=== PATIENT | female | born 1930 | race Caucasian/White ===

== ENCOUNTER 2018-01-09 14:47 | Inpatient (IN) | payer OTHER, MEDICAID ==
[~2018-01-09] VITALS: Ht 157.5 cm; Wt 59.0 kg
[2018-01-09] VITALS (7 sets, daily range): BP systolic 89–109
--- NOTE | 2018-01-09 14:50 | NUR ---
Placed in room 01 . Placed on site monitor, blood pressure machine and pulse oximeter. To gown for exam. Side rails up.
--- NOTE | 2018-01-09 14:52 | NUR ---
Pt presented to ED via BLS with generalized weakness. Pts family stated that she has been weak and its been increasing over the past week. Pt is very lethargic, and will respond to tactile stimuli. Pt family stated that starting yesterday she stopped eating and getting up to use the restroom as well as stopped taking her medication. Pt is connected to monitor. Will continue to monitor.
--- NOTE | 2018-01-09 14:55 | NUR ---
ER Dr. Alaniz at bedside examining patient.
[2018-01-09] MEDS ORDERED: NALOXONE HCL 2 MG/2 ML SYR IVP ONE (15:00)
--- NOTE | 2018-01-09 15:18 | NUR ---
Phleb at bedside for blood draw
--- NOTE | 2018-01-09 15:20 | NUR ---
Patient off unit transported to radiology via gurney , accompanied by
[2018-01-09] MEDS ORDERED: WARF3TAB2 PO (15:25)
[2018-01-09] MEDS ORDERED: CHOL500037 PO (15:25)
[2018-01-09] MEDS ORDERED: HYDR-1115 PO (15:25)
[2018-01-09] MEDS ORDERED: LISI30TA36 PO (15:25)
[2018-01-09] MEDS ORDERED: AMI200 PO (15:25)
[2018-01-09] MEDS ORDERED: WARF4TAB2 PO (15:25)
[2018-01-09] MEDS ORDERED: HYDR25TA4 PO (15:25)
--- NOTE | 2018-01-09 15:26 | NUR ---
Medication reconciliation completed with information provided by Daughter. All RX bottles returned and asked to be taken home if pt is admitted. Verbalized understanding. Any prior medication reconciliation on file was reviewed and corrected.
--- NOTE | 2018-01-09 15:35 | NUR ---
Patient returned from radiology via [facility] , accompanied by
[2018-01-09 15:46] LABS: HEMATOCRIT 35.2 % (36-48); HEMOGLOBIN 12.1 g/dL (12.0-16.0); MEAN CORPUSCULAR HEMOGLOBIN 33 pg (27-31); MEAN CORPUSCULAR HGB CONC 34 % (32-36); MEAN CORPUSCULAR VOLUME 96 fL (79.0-98.0); PLATELET COUNT (AUTO) 100 K/uL (130-430); RED BLOOD CELL COUNT(AUTO) 3.66 MIL/uL (4.2-6.2); RED CELL DISTRIBUTION WIDTH 14.9 % (9.0-15.0); WHITE BLOOD COUNT (AUTO) 6.6 K/uL (4.8-10.8)
[2018-01-09 15:55] LABS: BAND % (MANUAL) 11 % (0-6); EOSINOPHILS % (MANUAL) 0 % (0-7); LYMPHOCYTES % (MANUAL) 3 % (20-46); MONOCYTES % (MANUAL) 0 % (0-11)
[2018-01-09 16:03] LABS: ANION GAP 13 (5-15); CALCIUM 9.2 mg/dL (8.4-11.0); CHLORIDE 103 mmol/L (98-107); CREATININE 1.68 mg/dL (0.55-1.30); GLUCOSE 79 mg/dL (70-99); POTASSIUM 3.2 mmol/L (3.5-5.1); SODIUM SERUM 137 mmol/L (136-145); UREA NITROGEN, BLOOD 34 mg/dL (8-21)
[2018-01-09 16:04] LABS: INR 3.4 (0.8-1.2)
[2018-01-09 16:05] LABS: PROTHROMBIN TIME 35.2 SECS (9.5-12.5)
--- NOTE | 2018-01-09 16:06 | NUR ---
critical lab results: PT = 35.2 and INR = 3.4 ; Notified Dr. Alaniz, physician to see patient.
[2018-01-09 16:08] LABS: ALANINE AMINOTRANSFERASE 241 U/L (12-78); ALBUMIN 3.2 g/dL (3.4-4.8); ASPARTATE AMINOTRANSFERASE 564 U/L (10-37); TOTAL BILIRUBIN 2.5 mg/dL (0.0-1.0)
[2018-01-09 16:09] LABS: ALCOHOL, BLOOD < 3 mg/dL (<10)
[2018-01-09] MEDS ORDERED: NACL 0.9% 1,000 ML IV ONE ×2 (16:15→17:00)
[2018-01-09 16:49] LABS: BASOPHILS % (MANUAL) 0 % (0-2)
[2018-01-09 17:27] LABS: BILIRUBIN,URINE 1+ (NEGATIVE); BLOOD, URINE NEGATIVE (NEGATIVE); CLARITY/URINE CLEAR (CLEAR); COLOR,URINE YELLOW (YELLOW); GLUCOSE,URINE NEGATIVE (NEGATIVE); KETONES,URINE TRACE (NEGATIVE); LEUKOCYTE ESTERASE ,URINE TRACE (NEGATIVE); NITRITE, URINE NEGATIVE (NEGATIVE); PH,URINE 5.5 (5.0-8.0); PROTEIN URINE TRACE (NEGATIVE)
[2018-01-09 17:29] LABS: RBC,URINE 0-3 /HPF (0-3); WBC,URINE 0-3 /HPF (0-3)
[2018-01-09 17:30] LABS: BACTERIA,URINE MODERATE /HPF (None Seen); BARBITURATE, URINE NEGATIVE (NEG <=200); BENZODIAZEPINE, URINE NEGATIVE (NEG <=150); CANNABINOID, URINE NEGATIVE (NEG <=50); COCAINE, URINE NEGATIVE (NEG <=150); METHAMPHETAMINES SCREEN,URINE NEGATIVE (NEG <=500); OPIATE, URINE NEGATIVE (NEG <=100); PHENCYCLIDINE SCREEN,URINE NEGATIVE (NEG <=25); UR TRICYCLIC ANTIDEPRESSANTS NEGATIVE (NEG <=300); URINE AMPHETAMINE NEGATIVE (NEG <=500); URINE METHADONE NEGATIVE (NEG <=200); URINE OXYCODONE SCREEN NEGATIVE (NEG <=100); URINE PROPOXYPHENE SCREEN NEGATIVE (NEG <=300)
[2018-01-09] MEDS: NOREPINEPHRINE BITARTRATE 4 MG in NS 246 ML IV PRN ×2 (17:49→23:49)
--- NOTE | 2018-01-09 17:49 | NUR ---
Levophed Pt started on Levophed per MD. Pt connected to cardiac/vascular sonographer, will continue to monitor pt's blood pressure.
[2018-01-09] MEDS ORDERED: COMMUNICATION ORDER XX SCH (18:00)
--- NOTE | 2018-01-09 18:42 | NUR ---
Pt transferred to ICU bed 8. Pt endorsed to Isabel NUNO. Pt connected to ICU monitor.
--- NOTE | 2018-01-09 18:44 | NUR ---
PT ADMITTED FROM ER VIA GURNEY, PLACED IN ICU BED 8. PT ABLE TO ANSWER QUESTIONS APPROPRIATELY BUT SLOW TO ANSWER. PT APPEARS LETHARGIC. SR ON MONITOR. O2 SAT 91% ON ROOM AIR, UNLABORED RESPIRATIONS, PT DENIES SHORTNESS OF BREATH. 20G LAC IV WITH LEVOPHED INFUSING AT 10MCG/MIN, BP 96/63. 22G RIGHT WRIST IV, SL. NO SIGNS DISTRESS NOTED.
--- NOTE | 2018-01-09 19:12 | NUR ---
REPORT GIVEN TO JEAN USING SBAR, ENDORSED ALL CARE.
--- NOTE | 2018-01-09 19:50 | NUR ---
ASSESSMENT Pt alert, oriented to self & place. Pt on room air, Levophed infusing left lateral AC, 20ga. No c/o discomfort. Saline lock present right forearm 22ga. Family @ bedside.
--- NOTE | 2018-01-09 20:00 | NUR ---
ZAMORANO CATH: # 16 FR Zamorano catheter with 10 cc bulb inserted with use of sterile technique. Bulb inflated with 10 cc sterile water. Immediate return of 10 cc dark debbie urine noted. Bedside drainage bag placed below level of bladder. Pt tolerated procedure well.
--- NOTE | 2018-01-09 20:15 | NUR ---
DR EUGENIO Quiroz here evaluating pt.
--- NOTE | 2018-01-09 20:15 | NUR ---
DR EUGENIO Quiroz notified regarding low urine output (15ml). Orders received, IVF D5NS with 20meq Kcl @ 150ml/hr
[2018-01-09] MEDS: KCL 20 mEq in D5NS 1000 mL 1,000 ML IV SCH (20:24)
[2018-01-09] MEDS ORDERED: COMMUNICATION ORDER XX ONE (21:30)
[2018-01-09] MEDS ORDERED: ACETAMINOPHEN 650 MG SUPP.RECT RC PRN (21:30)
[2018-01-09] MEDS ORDERED: LEVOFLOXACIN 500 MG/D5W 100 ML IV SCH (21:30)
[2018-01-09] MEDS ORDERED: VANCOMYCIN HCL 1000 MG/VIAL IV ONE (22:22)
[2018-01-09] MEDS ORDERED: LEVOFLOXACIN 500 MG/D5W 100 ML IV ONE (22:22)
--- NOTE | 2018-01-09 22:54 | NUR ---
CONSULT CALLED PAGED DR HANCOCK SPOKE TO JACKIE
[2018-01-09] MEDS ORDERED: VANCOMYCIN HCL 1 GM/NS PREMIX 250 ML IV SCH (23:00)
--- NOTE | 2018-01-09 23:18 | NUR ---
JAKY HAMILTON CALLED LEFT MESSAGE FOR TIESHA
[2018-01-09] MEDS ORDERED: NOREPINEPHRINE 4 MG/4 ML VIAL IV ONE (23:45)
[2018-01-10] VITALS (25 sets, daily range): BP systolic 76–149
--- NOTE | 2018-01-10 00:15 | NUR ---
RESTLESS Pt restless, c/o mild SOB. Respirations in low 30's. Oxygen saturation 91-92% room air. Pt placed on 1L/min nasal cannula Oxygen. O2 saturation 96%, respirations 20-25.
--- NOTE | 2018-01-10 02:05 | NUR ---
ASSUMPTION OF CARE REPORT RECEIVED FROM JEAN NUNO TO ASSUME CARE. PT RECEIVED IN BED WITH EYES OPEN, SLIGHTLY CONFUSED BUT ABLE TO VERBALIZE NEEDS. PT REORIENTED AND TOLD THAT SHE IS IN THE HOSPITAL AND NOT ABLE TO GET OUT OF BED AT THIS TIME. PT VERBALIZES UNDERSTANDING. WILL CONTINUE TO MONITOR PT.
[2018-01-10] MEDS: KCL 20 mEq in D5NS 1000 mL 1,000 ML IV SCH (03:08)
[2018-01-10] MEDS ORDERED: NOREPINEPHRINE 4 MG/4 ML VIAL IV ONE ×2 (03:27→06:30)
[2018-01-10] MEDS: NOREPINEPHRINE BITARTRATE 4 MG in NS 246 ML IV PRN ×2 (03:47→06:56)
[2018-01-10 06:29] LABS: EOSINOPHILS % (AUTO) 0.1 % (0.0-4.0); LYMPHOCYTES # (AUTO) 0.8 K/uL (1.0-5.5); MONOCYTES # (AUTO) 0.3 K/uL (0.0-1.0)
[2018-01-10 06:34] LABS: ANION GAP 11 (5-15); CALCIUM 7.5 mg/dL (8.4-11.0); CHLORIDE 110 mmol/L (98-107); CREATININE 1.87 mg/dL (0.55-1.30); GLUCOSE 148 mg/dL (70-99); SODIUM SERUM 139 mmol/L (136-145); UREA NITROGEN, BLOOD 33 mg/dL (8-21)
[2018-01-10 06:38] LABS: BASOPHILS % (AUTO) 0.2 % (0.0-2.0); HEMATOCRIT 34.4 % (36-48); HEMOGLOBIN 11.7 g/dL (12.0-16.0); LYMPHOCYTES % (AUTO) 4.4 % (20.5-51.5); MEAN CORPUSCULAR HEMOGLOBIN 33 pg (27-31); MEAN CORPUSCULAR HGB CONC 34 % (32-36); MEAN CORPUSCULAR VOLUME 96 fL (79.0-98.0); MONOCYTES % (AUTO) 1.7 % (1.7-9.3); NEUTROPHILS % (AUTO) 93.6 % (40.0-70.0); PLATELET COUNT (AUTO) 84 K/uL (130-430); RED BLOOD CELL COUNT(AUTO) 3.58 MIL/uL (4.2-6.2); RED CELL DISTRIBUTION WIDTH 15.7 % (9.0-15.0); WHITE BLOOD COUNT (AUTO) 18.1 K/uL (4.8-10.8)
--- NOTE | 2018-01-10 07:19 | NUR ---
ENDORSEMENT BEDSIDE REPORT GIVEN TO RADHA NUNO USING SBAR APPROACH.
--- NOTE | 2018-01-10 07:25 | NUR ---
Received pt alert and cooperative but confused. IV to left out elbow area infiltrated with levophed infusing at 24 mcgs. 22g IV placed to right forearm first attempt and levophed changed to that site. PT has 02 at 2L NC in use with sats in the low 90's. Lungs with crackles bilat and diminshed on the right side. PT will be kept NPO at this time due to hypotension and abd US to be done this AM. ABD soft with bowel sounds. Skin integrity intact to back side. Unable to feel pedal pulses and no swelling noted. Skin wrinkles to feet and ankles. Pt has a luan cath with no urine in bag. Monitor shows paced rhythm with underlying afib. Grand daughter called in and informed her of her condition. Will continue to monitor.
[2018-01-10 07:38] LABS: PROTHROMBIN TIME 42.4 SECS (9.5-12.5)
[2018-01-10 07:39] LABS: INR 4.1 (0.8-1.2)
--- NOTE | 2018-01-10 07:45 | NUR ---
Nutrition Update Reji Scale 16 noted. Pt admitted for dehydration, hypotension Diet: pureed diet BMI: 23.8 kg/m2 RD to follow per nutrition care standards.
--- NOTE | 2018-01-10 07:55 | NUR ---
Call placed to Dr. Quiroz to report positive blood cultures and no urine output.
--- NOTE | 2018-01-10 08:07 | NUR ---
Second call out to Dr. Quiroz regarding labs and SBP 70's with levophed maxed out. Waiting for return call.
--- NOTE | 2018-01-10 08:15 | NUR ---
Dr. Quiroz called back and blodd cultures reported. Orders left.
[2018-01-10] MEDS: AMIODARONE HCL 200 MG TABLET PO SCH (09:00)
[2018-01-10] MEDS: NITROGLYCERIN 1 INCH (GM) OINT. TP SCH ×2 (09:00→20:09)
[2018-01-10] MEDS: MEGESTROL ACETATE 400 MG/10 ML UDC PO SCH ×2 (09:00→20:09)
[2018-01-10] MEDS ORDERED: SODIUM BICARBONATE 8.4% JECT 50 MEQ/50 ML SYRINGE ONE (09:30)
[2018-01-10] MEDS: NOREPINEPHRINE BITARTRATE 8 MG in NS 242 ML IV PRN ×3 (09:36→19:03)
[2018-01-10] MEDS: DOPamine PREMIX 250 ML IV PRN ×2 (10:47→22:56)
[2018-01-10] MEDS ORDERED: AMIKACIN SULFATE 350 MG in D5W 100 ML IV SCH (11:00)
--- NOTE | 2018-01-10 11:13 | NUR ---
Dr. Quiroz in to see pt and orders for pulmonary consult and bipap ordered. spoke with at bedside. Both doctors spoke with with the family at bedside.
--- NOTE | 2018-01-10 11:20 | NUR ---
RT Note: 1120 Pt placed on BiPAP on the ff setting IPAP 12, EPAP 6, BUR 10, and 55% FiO2. Pt is tolerating well. No distress noted. Will continue to monitor pt. Addendum: 01/10/18 at 1237 by Sara Cardona RT Amended: Links added.
[2018-01-10] MEDS ORDERED: ONDANSETRON HCL 4 MG/2 ML VIAL IVP PRN (12:00)
--- NOTE | 2018-01-10 12:45 | NUR ---
DR. BECKER, DR. BECKER WAS PAGED REGARDING PT AGITATION SINCE BEING PLACED ON BIPAP. STATES WILL ENTER ORDER FOR ATIVAN.
[2018-01-10] MEDS ORDERED: ONDANSETRON HCL 4 MG/2 ML VIAL ONE (13:10)
--- NOTE | 2018-01-10 13:15 | NUR ---
Pt c/o nausea still. Zofran 4mg IVP given. Family at bedside and requesting something for anxiety for their mom. Pt is very anxious and wants the BIPAP removed. Currently 02 sats 92% on BIPAP 05/21/% . CAll out to Dr. Quiroz for something for anxiety.
--- NOTE | 2018-01-10 13:25 | NUR ---
Spoke with Dr. Quiroz regarding anxiety. Orders left. Family at bedside. Rediscussed code status in case pt insists on having BIPAP removed. Family talking about it and will get back to staff.
--- NOTE | 2018-01-10 13:40 | NUR ---
LEVOPHED DRIP LEVOPHED TITRATED TO 21MCG/MIN. PT CONTINUEDS TO COMPLAIN ABOUT THE BIPAP, EXPRESSES THAT SHE WANTS IT REMOVED.
[2018-01-10] MEDS ORDERED: LORazepam 2 MG/ML VIAL IVP PRN (13:45)
--- NOTE | 2018-01-10 13:45 | NUR ---
Bipap removed per pt wishes. Pt also refuses her oxygen. Family at bedside and aware.
[2018-01-10] MEDS: NACL 0.9% 1,000 ML IV SCH (14:24)
--- NOTE | 2018-01-10 14:40 | NUR ---
ABD HAND EDGER ARRIVED TO DO AN ABDOMINAL ULTRASOUND.
--- NOTE | 2018-01-10 14:55 | NUR ---
LEVOPHED TITRATED LEVOPHED TITRATED TO 27MCG/MIN.
--- NOTE | 2018-01-10 14:57 | NUR ---
Dietitian Recommendations *Recommend swallow eval. *Consider TPN/PPN when medically appropriate. Please see Nutritional Assessment for details. OLMAN, ANNMARIE
--- NOTE | 2018-01-10 15:01 | NUR ---
US being done at bedside. Levophed at 27 mcgs and Dopamine at 10 mcgs/kg/min. Skin color dunham and cool. Resp 18. Pt resting quietly after ativan given.
--- NOTE | 2018-01-10 15:02 | NUR ---
SWALLOW EVAL PT IS LETHARGIC, UNABLE TO PARTICIPATE IN SWALLOW EVAL AT THIS TIME. TIESHA, SPEECH THERAPIST NOTIFIED.
--- NOTE | 2018-01-10 16:00 | NUR ---
FAMILY MEMBERS MULTIPLE FAMILY MEMBERS AT BEDSIDE. SAW PT AND SPOKE WITH FAMILY. CODE STATUS DISCUSSED W DAUGHTER, YUE, SHE DOES NOT WANT ACLS DRUGS TO BE GIVEN. DR. BECKER PAGED.
--- NOTE | 2018-01-10 16:15 | NUR ---
Dr. Paez in to see pt. Speaks with family. Lots of family at bedside. Pt awake at times and whispering to family, but difficult to understand what she is saying.
--- NOTE | 2018-01-10 16:25 | NUR ---
Dr Manzo in to see pt. Dr Manzo wants pt to have oxygen on and BIPAP put back on. Informed him that it is the pts and familys wish to not have any oxygen. He requested that HI 02 be applied. PT and family ok with that.
--- NOTE | 2018-01-10 16:46 | NUR ---
DR. EUGENIO BECEKR PAGED AGAIN.
[2018-01-10] MEDS: CEFEPIME 1 GM in D5W 50 ML IV SCH (16:59)
--- NOTE | 2018-01-10 18:03 | NUR ---
Family at bedside. Pts levophed at 22 mcgs and dopamine at 10 mcgs infusing thru right upper arm PICC line and SBP 110. Paced on monitor with underlying afib. Pt responsive to voice and too weak to talk. Pts skin color is dunham. 02 in use. Very minimal debbie urine output.
--- NOTE | 2018-01-10 19:00 | NUR ---
Care endorsed to oncoming shift. Levophed 22 mcgss and dopamine at 10 mcgs. Family at bedside. Pt occasionally opens her eyes to family. Paced on monitor.
--- NOTE | 2018-01-10 19:30 | NUR ---
PM ASSESSMENT REPORT RECEIVED FROM RADHA NUNO. PT RECEIVED IN BED WITH EYES OPEN, PALE AND LETHARGIC. ABLE TO NOD HEAD IN RESPONSE TO QUESTIONS. PT ON 3L NC. 100% PACED WITH UNDERLYING A-FIB ON MONITOR. JULIET PICC IN PLACE INFUSING NS @ 75 CC/HR, LEVOPHED @ 22 MCGS/MIN, AND DOPAMINE AT 10 MCGS/KG/MIN. RFA 22G TO SL. ZAMORANO CATH IN PLACE DRAINING STEVIE URINE TO GRAVITY. HOB ELEVATED, BED IN LOWEST POSITION, CALL LIGHT IN REACH. WILL CONTINUE TO MONITOR. Addendum: 01/10/18 at 2251 by Catrina Wilson RN RAC 20G INFUSING NS @ 75 CC/HR, JULIET PICC INFUSING LEVOPHED AND DOPAMINE DRIPS.
[2018-01-10] MEDS ORDERED: LEVOFLOXACIN 250 MG/D5W 50 ML IV SCH (21:00)
--- NOTE | 2018-01-10 22:51 | NUR ---
RN ROUNDS PT FAMILY AT BEDSIDE. PT REQUESTS TO REMAIN ON HER RIGHT SIDE, PT AND FAMILY EDUCATED ON IMPORTANCE OF TURNING Q2H, PT AND FAMILY VERBALIZE UNDERSTANDING BUT WOULD LIKE HER TO REMAIN COMFORTABLE. PT STATES SHE IS COMFORTABLE REMAINING ON HER RIGHT SIDE AT THIS TIME. WILL CONTINUE TO MONITOR.
[2018-01-11] VITALS (10 sets, daily range): BP systolic 86–122
[2018-01-11] MEDS: NACL 0.9% 1,000 ML IV SCH (01:08)
[2018-01-11] MEDS: NOREPINEPHRINE BITARTRATE 8 MG in NS 242 ML IV PRN ×2 (01:09→07:45)
--- NOTE | 2018-01-11 03:47 | NUR ---
CHG REFUSED PT REFUSED CHG BATH STATING SHE DOES NOT WANT TO TAKE A BATH RIGHT NOW. PT STATES "I WILL TAKE A BATH WHEN I GET UP", I EXPLAINED TO PT THAT SHE IS NOT ABLE TO GET UP AT THIS TIME AND I WOULD BE ABLE TO PROVIDE A BATH FOR HER. PT STILL REFUSES. WILL CONTINUE TO MONITOR.
[2018-01-11] MEDS: CEFEPIME 1 GM in D5W 50 ML IV SCH (04:06)
--- NOTE | 2018-01-11 05:30 | NUR ---
CHG PT CHANGED MIND AND STATES SHE WOULD LIKE TO HAVE A BATH. CHG BATH GIVEN, FANY CARE DONE, GOWN AND LINENS CHANGED. PT REPOSITIONED AND MADE COMFORTABLE. PT TOLERATED WELL. WILL CONTINUE TO MONITOR
[2018-01-11 05:42] LABS: HEMOGLOBIN 12.6 g/dL (12.0-16.0); MEAN CORPUSCULAR HEMOGLOBIN 33 pg (27-31); MEAN CORPUSCULAR HGB CONC 34 % (32-36); RED CELL DISTRIBUTION WIDTH 16.5 % (9.0-15.0)
[2018-01-11 05:58] LABS: ALANINE AMINOTRANSFERASE 635 U/L (12-78); ALBUMIN 2.4 g/dL (3.4-4.8); ANION GAP 10 (5-15); ASPARTATE AMINOTRANSFERASE 890 U/L (10-37); CALCIUM 7.5 mg/dL (8.4-11.0); CHLORIDE 112 mmol/L (98-107); GLUCOSE 107 mg/dL (70-99); POTASSIUM 4.6 mmol/L (3.5-5.1); SODIUM SERUM 138 mmol/L (136-145); TOTAL BILIRUBIN 2.7 mg/dL (0.0-1.0); UREA NITROGEN, BLOOD 39 mg/dL (8-21)
[2018-01-11 06:15] LABS: BASOPHILS # (AUTO) 0.1 K/uL (0.0-0.2); BASOPHILS % (AUTO) 0.6 % (0.0-2.0); EOSINOPHILS % (AUTO) 0.1 % (0.0-4.0); HEMATOCRIT 36.7 % (36-48); LYMPHOCYTES # (AUTO) 1.1 K/uL (1.0-5.5); LYMPHOCYTES % (AUTO) 5.7 % (20.5-51.5); MEAN CORPUSCULAR VOLUME 96 fL (79.0-98.0); MONOCYTES # (AUTO) 0.3 K/uL (0.0-1.0); MONOCYTES % (AUTO) 1.3 % (1.7-9.3); NEUTROPHILS # (AUTO) 17.8 K/uL (1.8-7.7); PLATELET COUNT (AUTO) 93 K/uL (130-430); RED BLOOD CELL COUNT(AUTO) 3.82 MIL/uL (4.2-6.2); WHITE BLOOD COUNT (AUTO) 19.3 K/uL (4.8-10.8)
[2018-01-11 06:28] LABS: INR 6.1 (0.8-1.2); PROTHROMBIN TIME 69.6 SECS (9.5-12.5)
--- NOTE | 2018-01-11 06:45 | NUR ---
Paged Dr. Quiroz paged on his pager dialed [phone] exchange did not answer
--- NOTE | 2018-01-11 06:46 | NUR ---
CRITICAL LAB VALUES CRITICAL LAB VALUES RECEIVED INR 6.1, PT 69.6. DR. BECKER PAGED WITH NO ANSWER AT EXCHANGE. PAGED ON HIS PAGER AND AWAITING CALL BACK.
[2018-01-11 06:53] LABS: NEUTROPHILS % (AUTO) 92.3 % (40.0-70.0)
--- NOTE | 2018-01-11 07:25 | NUR ---
ENDORSEMENT BEDSIDE REPORT GIVEN TO WALE NUNO USING SBAR APPROACH.
--- NOTE | 2018-01-11 07:30 | NUR ---
AM ROUNDS: No s/s of distress noted.
[2018-01-11] MEDS ORDERED: NOREPINEPHRINE 4 MG/4 ML VIAL IV ONE (07:46)
--- NOTE | 2018-01-11 07:59 | NUR ---
Pged Dr. Quiroz per YAAKOV Martinez. dialed [phone]
[2018-01-11] MEDS: MEGESTROL ACETATE 400 MG/10 ML UDC PO SCH (08:12)
[2018-01-11] MEDS: AMIODARONE HCL 200 MG TABLET PO SCH (08:12)
[2018-01-11] MEDS: NITROGLYCERIN 1 INCH (GM) OINT. TP SCH (08:15)
--- NOTE | 2018-01-11 08:43 | NUR ---
PATIENT : Patient noted to be 100% paced on monitor with HR 60 patient is DNR status, no spontaneous respirations, O2 sat 60% with O2 via NC at 4LPM, no BP reading; levophed @ 28mcg/min, dopamine @ 15mcg/kg/min. Family at bedside. Dr. Reid at bedside and pronounced patient. Patient at 0840. Dopamine, levophed, oxygen turned off after Dr. Reid pronounced patient.
--- NOTE | 2018-01-11 08:51 | NUR ---
's Informed Patient Dr. Quiroz called spoke to einez dialed [phone] Dr. Enriquez called spoke to negrito dialed [phone] Dr. Mccormick called spoke to negrito dialed [phone] Dr. Orozco called (dr. long operations support coordinator) spoke to negrito dialed [phone]
--- NOTE | 2018-01-11 09:04 | NUR ---
COMMUNICATION: One legacy and patternmaker helper called.
--- NOTE | 2018-01-11 12:54 | NUR ---
BODY RELEASED: Picked up by Cliff regan.
[2018-01-11] MEDS ORDERED: VANCOMYCIN HCL 750 MG in NS 250 ML IV SCH (23:00)
[2018-01-12] MEDS ORDERED: WARFARIN SODIUM 3 MG TABLET PO SCH (09:00)
== END 2018-01-11 08:40 | disposition expired | DRG 871 ==
LOC: SED 14:47 → SIC 17:52
PROVIDERS: ADMIT Family Medicine; ATTEND Family Medicine
PROC: 5A09357 Assistance with Respiratory Ventilation, Less than 24 Consecutive Hours, Continuous Positive Airway Pressure (ICD-10-PCS; principal; 2018-01-10)
PROC: 02HV33Z Insertion of Infusion Device into Superior Vena Cava, Percutaneous Approach (ICD-10-PCS; 2018-01-10)
PROC: B548ZZA Ultrasonography of Superior Vena Cava, Guidance (ICD-10-PCS; 2018-01-10)
DX: A41.9 Sepsis, unspecified organism (principal); R65.21 Severe sepsis with septic shock; N17.0 Acute kidney failure with tubular necrosis; G93.41 Metabolic encephalopathy; J96.90 Respiratory failure, unspecified, unspecified whether with hypoxia or hypercapnia; J18.9 Pneumonia, unspecified organism; I42.0 Dilated cardiomyopathy; N39.0 Urinary tract infection, site not specified; Z66 Do not resuscitate; G20 Parkinson's disease; I11.0 Hypertensive heart disease with heart failure; I50.9 Heart failure, unspecified; F02.80 Dementia in other diseases classified elsewhere, unspecified severity, without behavioral disturbance, psychotic disturbance, mood disturbance, and anxiety; E86.0 Dehydration; I48.2 Chronic atrial fibrillation; M19.90 Unspecified osteoarthritis, unspecified site; Z88.0 Allergy status to penicillin; Z79.899 Other long term (current) drug therapy; Z95.0 Presence of cardiac pacemaker; Z90.710 Acquired absence of both cervix and uterus; Z79.01 Long term (current) use of anticoagulants
CPT/HCPCS: 36415; 70450-TC; 71045; 76700-TC; 80048; 80053; 80307; 81000-TC; 82140-TC; 82550-TC; 83605; 83735-TC; 83880; 84484; 85007; 85025; 85027; 85610-TC; 85730-TC; 87040-TC; 87081; 87086; 87186-TC; 93005; 93306; 94660; 96361; 96374; 99285; A6209; C1751; G0482; J0278; J0692; J1265; J1956; J2060; J2310; J2405; J3370; J7030; J7050; J7060; NO CODE